=== PATIENT | male | born 1985 | race Caucasian/White ===

== ENCOUNTER 2021-02-17 21:22 | Emergency (ER) | payer MEDICAID, SELFPAY ==
[2021-02-17 21:24] VITALS: BP 122/80; PULSE 73; RESP 18; TEMP 36.3; O2SAT 99; BMI 25.5
[2021-02-17] MEDS: Metoclopramide 10 MG/2 ML Vial 5 MG IV (22:36)
[2021-02-17] MEDS: DiphenhydrAMINE 50 MG/ML Syringe 25 MG IV (22:36)
--- NOTE | 2021-02-17 23:50 | EX.ED.DYSGE1 ---
HPI History of Present Illness Chief Complaint: Headache Informant: patient Narrative Narrative: 35-year-old male presenting with headache. Patient has a history of previous similar headaches in the past. This started several hours ago. States it started gradually and has worsened. He has nausea with no vomiting. Denies fever. Denies vision changes. Denies recent trauma. Denies other complaints. Prior similar symptoms: Yes Recent Illness/Hospitalization: No PFSH PFSH Medical History (Updated 02/17/21 @ 23:[address] Shirley Perdue MD) Migraines Home Medications NK 02/17/21 [History Last Taken Unknown] Allergy/AdvReac Type Severity Reaction Status Date / Time No Known Allergies Allergy Verified 02/17/21 21:26 Family History (Updated 02/17/21 @ 22:02 by Dena Mares) Other History of appendectomy Social History Smoking Status: Current every day smoker ROS ROS ED Constitutional Constitutional ED: Denies fever(s) Eyes Eyes: Denies change in vision ENT ENT ED: Denies rhinorrhea Cardiovascular Cardiovascular: Denies chest pain Respiratory/Chest Respiratory/Chest: Denies cough or dyspnea Gastrointestinal Gastrointestinal: Reports nausea; Denies abdominal pain, diarrhea or vomiting Genitourinary Genitourinary ED: Denies dysuria Musculoskeletal Musculoskeletal: Denies myalgias Integumentary Denies rash Neurologic Neurologic: Reports headache(s); Denies paresthesias or weakness EXAM Physical Exam Const Vital Signs: 02/17/21 21:24 Temperature 97.3 F L Temperature Source Temporal Pulse Rate 73 Respiratory Rate 18 Blood Pressure 122/80 H Blood Pressure Mean 94 Pulse Ox 99 Oxygen Delivery Method Room Air Positive well nourished and well developed General Appearance ED: well developed HEENT Reports normocephalic and head/scalp atraumatic Eyes PERRL and EOMs intact bilaterally Neck supple Neck Narrative: No meningismus General: Negative for tenderness Chest Wall inspection of chest normal Resp normal respiratory effort and clear to auscultation bilaterally Cardio regular rate and regular rhythm no CVA tenderness Extremity normal to inspection Neuro oriented x3 Sensorium / Orientation: alert Motor Exam: strength 5/5 throughout Psych mental status grossly normal Skin no rashes or lesions noted MDM MDM MDM Narrative Medical decision making narrative: Patient was given Reglan, Benadryl IV. On reevaluation he is resting comfortably. He is comfortable with discharge home. Advised to follow up with primary care physician. Advised return to ED for worsening complaints. Discharge Plan Triage Chief Complaint: Headache ED Provider: Shirley Perdue Dx/Rx/DC Orders Clinical Impression: Headache Instructions: ED Headache Unspecified Prescriptions: No Action NK RF: 0 Primary Care Provider: Care Physician,No Primary Referrals: Care Physician,No Primary [Primary Care Provider] - Sadiq Christina MD [STAFF PHYSICIAN] - Disposition Disposition: Home, self care
[2021-02-18 00:02] VITALS: RESP 16
== END 2021-02-18 00:03 | disposition home or self-care (01) ==
PROVIDERS: Emergency Provider Emergency Medicine
DX: R51.9 Headache, unspecified (principal); F17.200 Nicotine dependence, unspecified, uncomplicated
CPT/HCPCS: 96374; 96375; 99282; A4216

== ENCOUNTER 2021-05-25 16:34 | Emergency (ER) | payer MEDICAID, SELFPAY ==
[2021-05-25 16:34] VITALS: BP 140/78; PULSE 94; RESP 18; TEMP 36.2; O2SAT 97; BMI 25.5
--- NOTE | 2021-05-25 16:41 | EDS_ITS ---
HPI History of Present Illness Chief Complaint: Abscess Informant: patient Onset/Context/Timing Onset: Days (Onset Tuesday of last week May 19) Context: Sudden Onset Timing: Continuous Current Severity: Moderate Maximum Severity: Moderate Worsened by: Attempting to squeeze it Relieved by: Nothing Associated Symptoms Associated Symptoms: No associated symptoms Narrative Narrative: Patient is a 36-year-old male with history of mitral valve prolapse who presents because of abscess inferior to the right clavicle. He denies fever, chills night sweats. He denies shortness of breath. 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 He states he noted the redness last Tuesday. He attempted to pop it and squeeze it. It has gotten worse. He denies history of rheumatic fever, SBE or being immune suppressed. Denies history of HIV or hepatitis. He denies IV drug use. He denies nausea, vomiting or diarrhea. He denies any other lesions or rash. Prior similar symptoms: Yes Recent Illness/Hospitalization: No PFSH PFS Medical History (Updated 05/25/21 @ 16:[address] Navin Diego MD) Migraines Mitral valve prolapse Home Medications doxycycline monohydrate 100 mg PO BID #14 capsule 05/25/21 [Rx Last Taken Unknown] Allergy/AdvReac Type Severity Reaction Status Date / Time No Known Allergies Allergy Verified 05/25/21 16:36 Family History Other History of appendectomy Social History (Updated 05/25/21 @ 16:[address] Navin Diego MD) household members: none Smoking Status: Current every day smoker tobacco type: cigarettes alcohol intake: current Alcohol type: other substance use type: does not use ROS ROS ED Constitutional Constitutional ED: Denies chills, fever(s), subjective, sweats or weight loss Eyes Eyes: Denies blurry vision, change in vision or diplopia ENT ENT ED: Denies rhinorrhea or sore throat Cardiovascular Cardiovascular: Denies chest pain, palpitations or racing heartbeat Respiratory/Chest Respiratory/Chest: Denies cough, dyspnea or dyspnea on exertion Gastrointestinal Gastrointestinal: Denies diarrhea, nausea or vomiting Musculoskeletal Musculoskeletal: Denies arthralgias, back pain, myalgias or neck pain Integumentary Reports abscess and rash Neurologic Neurologic: Denies paresthesias or weakness Endocrine Endocrinology: Denies polydipsia, polyphagia or polyuria EXAM Physical Exam Const Vital Signs: 05/25/21 16:34 Temperature 97.2 F L Temperature Source Temporal Pulse Rate 94 Respiratory Rate 18 Blood Pressure 140/78 H Blood Pressure Mean 98 Pulse Ox 97 Oxygen Delivery Method Room Air Positive well nourished General Appearance ED: NAD HEENT Reports moist mucous membranes HEENT Narrative: Head is atraumatic normocephalic. Ears are normal. Nares patent. Eyes PERRL and EOMs intact bilaterally General Eye ED: Negative for pale conjunctiva or scleral icterus Neck no lymphadenopathy, supple and no JVD Chest Wall Negative for inspection of chest normal or palpation of chest normal Resp normal respiratory effort and clear to auscultation bilaterally Cardio regular rate, regular rhythm, S1 normal heart sound, S2 normal heart sound and no murmurs GI normal to inspection, nondistended, normoactive bowel sounds Extremity normal to inspection General Extremety ED: Negative for edema or tenderness General Extremity: Negative for edema Neuro oriented x3, CN's II-XII intact bilaterally and no sensory deficits noted Sensorium / Orientation: alert Motor Exam: strength 5/5 throughout Psych mental status grossly normal Skin Skin Narrative: Abscess mid third clavicle. There is also cellulitis noted. MDM MDM MDM Narrative Medical decision making narrative: Patient has abscess. Will prescribe doxycycline for MRSA coverage since he has history of MRSA and will prescribe Bactroban to be instilled right and left naris. Patient was consented for I&D. Since he ate and consumed a lot of fluids prior to arrival patient was not consented for sedation. He was informed that the area would be anesthetize with 1% lidocaine. He was informed of risk benefits. He consented. Procedures Other Procedures Procedure(s): Patient was consented for I&D. Patient was consented for incision and drainage of chest wall abscess. He was given opportunity ask questions. None were asked. He did sign consent form. Patient was prepped draped sterile manner. The area was anesthetized by local infiltration and field block. Incision was made. Purulent material was noted. Blunt dissection was undertaken. There were many areas of loculated cavities with purulent material. Cavity was irrigated. 1/2 inch Nu Gauze was placed to facilitate drainage, wick. Discharge Plan Triage Chief Complaint: Abscess ED Provider: Navin Diego Dx/Rx/DC Orders Clinical Impression: Cutaneous abscess of chest wall Instructions: ED Abscess Incision And Drainage Prescriptions: New doxycycline monohydrate 100 MG capsule 100 mg PO BID Qty: 14 RF: 0 Primary Care Provider: Care Physician,No Primary Referrals: Noemi Ingram MD [STAFF PHYSICIAN] - 2 Days for wound check (Cutaneous abscess that was incised and drained. Wick was placed. Patient does have history of MRSA.) Care Physician,No Primary [Primary Care Provider] - Activity Restrictions/Additional Instructions: 1. Call Dr. Bolton's office today to be seen in 2 days for wound check and greg heather of wick. 2. Take antibiotics until gone Disposition Disposition: Home, Self Care
[2021-05-25] MEDS: Doxycycline 100 MG CAPSULE PO (16:48)
[2021-05-25] MEDS: Lidocaine 1% (20 ml mdv) 20 ML Vial INFILT (17:00)
[2021-05-25 17:11] VITALS: RESP 16
== END 2021-05-25 17:12 | disposition home or self-care (01) ==
PROVIDERS: Emergency Provider Emergency Medicine
DX: L02.213 Cutaneous abscess of chest wall (principal); F17.210 Nicotine dependence, cigarettes, uncomplicated; Z86.14 Personal history of Methicillin resistant Staphylococcus aureus infection
CPT/HCPCS: 10061; 10060; 99284